=== PATIENT | male | born 1960 | race Caucasian/White ===

== ENCOUNTER → 2024-03-11 06:43 | Outpatient (REF) | payer BC, SELFPAY | LOC: RCS 06:43 | PROVIDERS: ATTENDING PHYSICIAN Internal Medicine Cardiovascular Disease; FAMILY PHYSICIAN Internal Medicine | DX: R07.89 Other chest pain (principal); R94.31 Abnormal electrocardiogram [ECG] [EKG]; I31.39 Other pericardial effusion (noninflammatory) | CPT/HCPCS: 78452; 93017; A9500 ==

== ENCOUNTER → 2024-03-25 10:15 | Outpatient (REF) | payer BC, SELFPAY | LOC: HWRCS 10:15 | PROVIDERS: ATTENDING PHYSICIAN Internal Medicine Cardiovascular Disease; FAMILY PHYSICIAN Internal Medicine | DX: R07.89 Other chest pain (principal); R94.31 Abnormal electrocardiogram [ECG] [EKG] | CPT/HCPCS: 93306 ==